=== PATIENT | female | born 1960 | race Hispanic/Latino ===

== ENCOUNTER 2016-11-15 16:20 | Emergency (ER) | payer OTHER ==
[2016-11-15 16:20] VITALS: BMI 26.4
[2016-11-15 16:39] VITALS: BP 98/60; PULSE 84; RESP 18; TEMP 97.7; O2SAT 95
--- NOTE | 2016-11-15 17:49 | ED PDOC ---
HPI: Altered Mental Status Time Seen by Provider: 11/15/16 17:11 Chief Complaint (Nursing): Altered Mental Status Chief Complaint (Provider): Altered Mental Status History Per: Patient, Family (patient's daughter) Onset/Duration Of Symptoms: Days (x6) Current Symptoms Are (Timing): Still Present Associated Symptoms: Confused, Trouble Concentrating Additional Complaint(s): 17:11 Jemma Garrett is a 56 year old female with a history of bipolar disorder, depression, anxiety, epilepsy, and ADHD that is accompanied by her daughter and presents to the ED with a chief complaint of being unable to focus. Patient's daughter states that for the past 6 days, her mother has been acting "loopy;" she goes on to explain that when her mother is talking to others, she understands what they're saying, but when she begins responding, she loses track of her speech mid-sentence. Patient's daughter also reports that the patient would begin to "speak gibberish" upon waking up. Patient reports being under a lot of stress due to family problems, feeling more depressed than usual , and being unable to concentrate. She also states she switched taking Latuda right before bed to taking it in the middle of the day about one week ago. 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 3 300 mg-30 mg] FLUoxetine [Fluoxetine HCl] 20 mg PO TID #21 cap 09/21/15 FLUoxetine [Fluoxetine HCl] 60 mg PO DAILY #27 cap 12/04/15 Sulfamethoxazole/Trimethoprim 1 tab PO BID #20 tab 06/10/16 [Bactrim DS 800 mg-160 mg] Albuterol HFA [Ventolin HFA 90 2 puff IH Q4H #1 puff 10/15/16 mcg/actuation (8 g)] Azithromycin [Zithromax] 250 mg PO DAILY #6 tab 10/15/16 - Allergies Allergies/Adverse Reactions: Allergies Allergy/AdvReac Type Severity Reaction Status Date / Time No Known Allergies Allergy Verified 11/15/16 16:37 Review of Systems Eyes: Negative for: Other (no blurred vision) Neurological: Positive for: Change in Speech. Negative for: Weakness, Numbness , Headache Psych: Positive for: Depression. Negative for: Suicidal ideation Physical Exam - Reviewed Nursing Documentation Reviewed: Yes Vital Signs Reviewed: Yes - Physical Exam Appears: Positive for: Non-toxic, No Acute Distress (patient is cooperative) Head Exam: Positive for: ATRAUMATIC, NORMOCEPHALIC Skin: Positive for: Normal Color, Warm, Dry Eye Exam: Positive for: Normal appearance, EOMI, PERRL ENT: Positive for: Pharynx Is (clear), Other (dry mucous membranes) Cardiovascular/Chest: Positive for: Regular Rate, Rhythm. Negative for: Murmur Respiratory: Positive for: Normal Breath Sounds. Negative for: Respiratory Distress Neurologic/Psych: Positive for: Alert, Oriented (x3), Mood/Affect (mild anxious mood, no depressed mood), Other (fluid speech, does lose train of thought occasionally. Normal thought process, no HI/SI. ). Negative for: Motor/Sensory Deficits - Laboratory Results Result Diagrams: 11/15/16 17:00 11/15/16 17:00 - ECG O2 Sat by Pulse Oximetry: 95 (RA) Pulse Ox Interpretation: Normal Medical Decision Making Medical Decision Makin:28 Initial Impression: AMS Initial Plan: * CMP * [facility] * Urine dip * Urine drug screen * Alcohol Serum * Magnesium * Phosphorous * TSH * Glucose, Blood, POC * Crisis Eval * Reevaluation No clinically significant lab abnormalities. Evaluated by Pedro RODRIGUEZ Pt stable for discharge with f/u PMD and Estela. Stressed importance of taking medications PRESCRIBED. Scribe Attestation: Documented by Stephany Gordon, acting as a scribe for Cherri Banda MD Provider Scribe Attestation: All medical record entries made by the Scribe were at my direction and personally dictated by me. I have reviewed the chart and agree that the record accurately reflects my personal performance of the history, physical exam, medical decision making, and the department course for this patient. I have also personally directed, reviewed, and agree with the discharge instructions and disposition. Disposition - Clinical Impression Clinical Impression: Adverse drug effect Counseled Patient/Family Regarding: Studies Performed, Diagnosis, Need For Followup - Disposition Referrals: [facility] [Outside] - 11/18/16 (ALSO FOLLOW UP WITH YOUR PSYCHIATRIST EARLY NEXT WEEK) Disposition: Routine/Home Disposition Time: 18:00 Condition: STABLE Additional Instructions: TAKE YOUR MEDICATIONS PRESCRIBED. DO NOT CHANGE THE DOSE OR THE TIMING OF YOUR MEDICATIONS. FOLLOW UP WITH BOTH THE CLINIC AND YOUR PSYCHIATRIST. Instructions: Bipolar Disorder (ED), Dehydration (ED)
[2016-11-15 18:01] LABS: BASO # 0.1 K/uL (0.0-0.2); BASO % 1.3 % (0.0-2.0); EOS # 0.4 K/uL (0.0-0.7); EOS % 4.8 % (0.0-4.0); HEMATOCRIT 41.2 % (34.0-47.0); LYMPH % 39.8 % (20.0-40.0); MEAN CELL VOLUME 90.3 fl (81.0-99.0); MEAN CORPUSCULAR HEMOGLOBIN 30.2 pg (27.0-31.0); MEAN CORPUSCULAR HGB CONC 33.5 g/dL (33.0-37.0); MEAN PLATELET VOLUME 8.5 fl (7.2-11.7); MONO # 0.4 K/uL (0.0-0.8); MONO % 5.4 % (0.0-10.0); NEUT # 3.7 K/uL (1.8-7.0); NEUT % 48.7 % (50.0-75.0); NRBC % 0.2 % (0.0-0.0); RED CELL DISTRIBUTION WIDTH 12.9 % (11.5-14.5); WHITE BLOOD COUNT 7.5 K/uL (4.8-10.8)
[2016-11-15 18:26] LABS: ALB/GLOB RATIO 1.3 (1.0-2.1); ALCOHOL SERUM < 10 mg/dl (0-10); ALKALINE PHOSPHATASE 100 U/L (38-126); ALT/SGPT 26 U/L (9-52); AST/SGOT 22 U/L (14-36); BILIRUBIN,TOTAL 0.5 mg/dl (0.2-1.3); BLOOD UREA NITROGEN 16 mg/dl (7-17); CALCIUM 9.3 mg/dL (8.4-10.2); CARBON DIOXIDE 25 mmol/L (22-30); CHLORIDE 101 mmol/L (98-107); GFR AFRICAN-AMERICAN 56; GLUCOSE,RANDOM 80 mg/dL (65-105); MAGNESIUM 2.2 MG/DL (1.6-2.3); PHOSPHOROUS 3.8 mg/dl (2.5-4.5); POTASSIUM 4.1 MMOL/L (3.6-5.0); SODIUM 142 mmol/l (132-148); TOTAL PROTEIN 7.3 G/DL (6.3-8.2)
== END 2016-11-15 19:13 | disposition home or self-care (01) ==
LOC: H.ER 16:20
DX: R41.82 Altered mental status, unspecified (principal); T88.7XXA Unspecified adverse effect of drug or medicament, initial encounter; F31.9 Bipolar disorder, unspecified

== ENCOUNTER 2017-09-19 10:12 | Emergency (ER) | payer MEDICAID ==
[2017-09-19 10:27] VITALS: PULSE 91; RESP 16; TEMP 97.5; O2SAT 99; BMI 24.1
[2017-09-19] MEDS ORDERED: Oxycodone/Acetaminophen 5/325 mg Tab PO STA (10:54)
[2017-09-19] MEDS ORDERED: Oxycodone/Acetaminophen 5/325 mg Tab ONE (11:02)
--- NOTE | 2017-09-19 11:20 | ED PDOC ---
HPI: Dental Pain/Injury Time Seen by Provider: 09/19/17 10:33 Chief Complaint (Nursing): Dental Pain Chief Complaint (Provider): Dental Pain History Per: Patient Additional Complaint(s): 57 yo female, PMH of Anxiety, Depression and Bipolar Dis, presents to ED c/o pain and swelling lt lower molar since yesterday. Pt took 400 mg Motrin last night with little relief. Pt contacted her dentist and office reports he has the flu and all visits are cancelled until further notice. Past Medical History Reviewed: Nursing Documentation, Vital Signs Vital Signs: Last Vital Signs Temp 97.5 F L 09/19/17 10:26 Pulse 91 H 09/19/17 10:26 Resp 16 09/19/17 10:26 BP 132/91 H 09/19/17 10:26 Pulse Ox 99 09/19/17 10:26 - Medical History PMH: Anxiety, Asthma, Bipolar Disorder, Depression Denies: Diabetes, Hepatitis, HIV, HTN, Chronic Kidney Disease, Seizures, Sexually Transmitted Disease - Surgical History Surgical History: No Surg Hx - Family History Family History: States: Unknown Family Hx - Living Arrangements Living Arrangements: With Family - Social History Current smoker - smoking cessation education provided: No Alcohol: None Drugs: Denies - Immunization History Hx Tetanus Toxoid Vaccination: Yes (2013) Hx Influenza Vaccination: Yes (2014) - Home Medications Home Medications: Ambulatory Orders Medication Instructions Recorded Carbamide Peroxide [Debrox Ear 5 drop AD BID #1 bottle 02/21/15 Drops] Ciprofloxacin/Dexamethasone 3 drop OD BID #0 bottle 02/21/15 [Ciprodex Otic] Fluoxetine HCl [Prozac] 60 mg PO DAILY 02/21/15 Naproxen [Naprosyn Tab] 500 mg PO BID PRN #20 tab 02/21/15 traZODone [Desyrel] 50 mg PO HS 02/21/15 Acetaminophen with Codeine 1 tab PO Q8H #10 tab 06/14/15 [Tylenol with Codeine No. 3 300 mg-30 mg] FLUoxetine [Fluoxetine HCl] 20 mg PO TID #21 cap 09/21/15 FLUoxetine [Fluoxetine HCl] 60 mg PO DAILY #27 cap 12/04/15 Sulfamethoxazole/Trimethoprim 1 tab PO BID #20 tab 06/10/16 [Bactrim DS 800 mg-160 mg] Albuterol HFA [Ventolin HFA 90 2 puff IH Q4H #1 puff 10/15/16 mcg/actuation (8 g)] Azithromycin [Zithromax] 250 mg PO DAILY #6 tab 10/15/16 - Allergies Allergies/Adverse Reactions: Allergies Allergy/AdvReac Type Severity Reaction Status Date / Time No Known Allergies Allergy Verified 09/19/17 10:35 Review of Systems ROS Statement: Except As Marked, All Systems Reviewed And Found Negative ENT: Positive for: Other (dental pain) Physical Exam - Reviewed Nursing Documentation Reviewed: Yes Vital Signs Reviewed: Yes - Physical Exam Appears: Positive for: Well, Non-toxic, No Acute Distress Head Exam: Positive for: ATRAUMATIC, NORMAL INSPECTION, NORMOCEPHALIC Skin: Positive for: Normal Color, Warm, DRY Eye Exam: Positive for: EOMI, Normal appearance, PERRL ENT: Positive for: Normal ENT Inspection, Other ((+) left lower 2-3rd molars, dental carries in place. no surrounding kristy aor erythema to gumline. ) Neck: Positive for: Normal, Painless ROM Cardiovascular/Chest: Positive for: Regular Rate, Rhythm Respiratory: Positive for: CNT, Normal Breath Sounds Gastrointestinal/Abdominal: Positive for: Normal Exam, Bowel Sounds, Soft Back: Positive for: Normal Inspection Extremity: Positive for: Normal ROM Neurologic/Psych: Positive for: Alert, Oriented - ECG O2 Sat by Pulse Oximetry: 99 Medical Decision Making Medical Decision Making: Medicated with Percocet PO Advised follow up with Dentist JOHANNA Disposition - Clinical Impression Clinical Impression: Toothache - Patient ED Disposition Is Patient to be Admitted: No - Disposition Disposition: Routine/Home Disposition Time: 11:24 Condition: STABLE - POA Present On Arrival: None
[2017-09-19 11:38] VITALS: BP 127/87
== END 2017-09-19 11:37 | disposition home or self-care (01) ==
LOC: H.ER 10:12
DX: K08.89 Other specified disorders of teeth and supporting structures (principal); F31.9 Bipolar disorder, unspecified; F41.9 Anxiety disorder, unspecified; J45.909 Unspecified asthma, uncomplicated

== ENCOUNTER 2017-09-26 04:41 | Emergency (ER) | payer MEDICAID, OTHER ==
[2017-09-26 04:42] VITALS: BMI 24.1
[2017-09-26] MEDS ORDERED: Albuterol-Ipratrop 3 mg / 0.5 (3 ml) UD INH STA (04:54)
--- NOTE | 2017-09-26 04:56 | ED PDOC ---
HPI: SOB/CHF/COPD Time Seen by Provider: 09/26/17 04:54 Chief Complaint (Nursing): Shortness Of Breath Chief Complaint (Provider): shortness of breath History Per: Patient (57 y/o female h/o Asthma here with complaint of SOB noted after exposure to fumes in bathroom. States she is out of albuterol and is here for treatment. Denies any cough/fevers/uri.) Past Medical History Reviewed: Historical Data, Nursing Documentation, Vital Signs Vital Signs: Last Vital Signs Temp 98.2 F 09/26/17 04:49 Pulse 104 H 09/26/17 04:49 Resp 18 09/26/17 04:49 BP 169/108 H 09/26/17 04:49 Pulse Ox 96 09/26/17 04:56 - Medical History PMH: Anxiety, Asthma, Bipolar Disorder, Depression Denies: Diabetes, Hepatitis, HIV, HTN, Chronic Kidney Disease, Seizures, Sexually Transmitted Disease - Family History Family History: States: Unknown Family Hx - Immunization History Hx Tetanus Toxoid Vaccination: Yes (2013) Hx Influenza Vaccination: Yes (2014) - Home Medications Home Medications: Ambulatory Orders Medication Instructions Recorded Carbamide Peroxide [Debrox Ear 5 drop AD BID #1 bottle 02/21/15 Drops] Ciprofloxacin/Dexamethasone 3 drop OD BID #0 bottle 02/21/15 [Ciprodex Otic] Fluoxetine HCl [Prozac] 60 mg PO DAILY 02/21/15 Naproxen [Naprosyn Tab] 500 mg PO BID PRN #20 tab 02/21/15 traZODone [Desyrel] 50 mg PO HS 02/21/15 Acetaminophen with Codeine 1 tab PO Q8H #10 tab 06/14/15 [Tylenol with Codeine No. 3 300 mg-30 mg] FLUoxetine [Fluoxetine HCl] 20 mg PO TID #21 cap 09/21/15 FLUoxetine [Fluoxetine HCl] 60 mg PO DAILY #27 cap 12/04/15 Sulfamethoxazole/Trimethoprim 1 tab PO BID #20 tab 06/10/16 [Bactrim DS 800 mg-160 mg] Albuterol HFA [Ventolin HFA 90 2 puff IH Q4H #1 puff 10/15/16 mcg/actuation (8 g)] Azithromycin [Zithromax] 250 mg PO DAILY #6 tab 02/21/17 Ibuprofen [Motrin] 600 mg PO Q6 #20 tab 09/19/17 Penicillin VK [Penicillin VK Tab] 500 mg PO BID 7 Days tab 09/19/17 oxyCODONE/Acetaminophen [Percocet 1 ea PO Q6 PRN #10 tab 09/19/17 5/325 mg Tab] Albuterol HFA [Ventolin HFA 90 2 puff IH [id number] PRN #1 inhaler 09/26/17 mcg/actuation (8 g)] - Allergies Allergies/Adverse Reactions: Allergies Allergy/AdvReac Type Severity Reaction Status Date / Time No Known Allergies Allergy Verified 09/19/17 10:35 Review of Systems ROS Statement: Except As Marked, All Systems Reviewed And Found Negative Physical Exam - Reviewed Nursing Documentation Reviewed: Yes Vital Signs Reviewed: Yes - Physical Exam Appears: Positive for: Well, Non-toxic, No Acute Distress Head Exam: Positive for: ATRAUMATIC, NORMAL INSPECTION, NORMOCEPHALIC Skin: Positive for: Normal Color, Warm, DRY Eye Exam: Positive for: EOMI, Normal appearance, PERRL ENT: Positive for: Normal ENT Inspection Neck: Positive for: Normal, Painless ROM Cardiovascular/Chest: Positive for: Regular Rate, Rhythm Respiratory: Positive for: Normal Breath Sounds, Decreased Breath Sounds Gastrointestinal/Abdominal: Positive for: Normal Exam, Bowel Sounds, Soft Back: Positive for: Normal Inspection Extremity: Positive for: Normal ROM Neurologic/Psych: Positive for: Alert, Oriented - ECG O2 Sat by Pulse Oximetry: 96 - Progress ED Course And Treament: duoneb x 1 dose Patient improved. Lungs improved clear auscultation. Disposition - Clinical Impression Clinical Impression: Asthma - Patient ED Disposition Is Patient to be Admitted: No - Disposition Referrals: Sarai More MD [Primary Care Provider] - Disposition: Routine/Home Disposition Time: 05:25 Condition: FAIR Prescriptions: Albuterol HFA [Ventolin HFA 90 mcg/actuation (8 g)] 2 puff IH [id number] PRN #1 inhaler PRN Reason: Shortness Of Breath Instructions: Asthma (DC) Forms: [employer] (Mauritanian)
[2017-09-26 05:13] VITALS: TEMP 98.2; O2SAT 96
[2017-09-26 05:35] VITALS: BP 125/73; PULSE 92; RESP 16
== END 2017-09-26 05:35 | disposition home or self-care (01) ==
LOC: H.ER 04:41
DX: J45.909 Unspecified asthma, uncomplicated (principal); F31.9 Bipolar disorder, unspecified; F41.9 Anxiety disorder, unspecified

== ENCOUNTER 2017-10-08 07:28 | Emergency (ER) | payer OTHER ==
[2017-10-08 07:28] VITALS: BMI 24.1
[2017-10-08 07:45] VITALS: RESP 18
[2017-10-08] MEDS ORDERED: Albuterol-Ipratrop 3 mg / 0.5 (3 ml) UD INH STA ×3 (07:46→08:02)
[2017-10-08] MEDS ORDERED: methylPREDNISolone 125 MG in Sodium Chloride 0.9% 50 ML IM STA (07:46)
--- NOTE | 2017-10-08 07:48 | ED PDOC ---
HPI: Asthma Time Seen by Provider: 10/08/17 07:39 Chief Complaint (Nursing): Shortness Of Breath Chief Complaint (Provider): Shortness of Breath History Per: Patient History/Exam Limitations: no limitations Current Symptoms Are (Timing): Still Present Additional Complaint(s): Jemma Muñiz is a 57 y/o female with a history of asthma who presents to the ED complaining of shortness of breath due to an asthma attack. Patient states she' s been using her pump 3-4 times a day, but ran out last night and hasn't been able to get improvement from breathing. She also complains of chest pain and non -productive cough, but denies fever, nausea, or vomiting. PMD: None Past Medical History Reviewed: Historical Data, Nursing Documentation, Vital Signs Vital Signs: Last Vital Signs Temp 97.8 F 10/08/17 07:40 Pulse 94 H 10/08/17 07:40 Resp 18 10/08/17 07:40 BP 142/103 H 10/08/17 07:40 Pulse Ox 95 10/08/17 07:40 - Medical History PMH: Anxiety, Asthma, Bipolar Disorder, Depression Denies: Diabetes, Hepatitis, HIV, HTN, Hypercholesterolemia, Chronic Kidney Disease, Seizures, Sexually Transmitted Disease - Family History Family History: States: Unknown Family Hx - Social History Current smoker - smoking cessation education provided: No (used to live with someone who smokes) - Immunization History Hx Tetanus Toxoid Vaccination: Yes (2013) Hx Influenza Vaccination: No - Home Medications Home Medications: Ambulatory Orders Medication Instructions Recorded Carbamide Peroxide [Debrox Ear 5 drop AD BID #1 bottle 02/21/15 Drops] Ciprofloxacin/Dexamethasone 3 drop OD BID #0 bottle 02/21/15 [Ciprodex Otic] Fluoxetine HCl [Prozac] 60 mg PO DAILY 02/21/15 Naproxen [Naprosyn Tab] 500 mg PO BID PRN #20 tab 02/21/15 traZODone [Desyrel] 50 mg PO HS 02/21/15 Acetaminophen with Codeine 1 tab PO Q8H #10 tab 06/14/15 [Tylenol with Codeine No. 3 300 mg-30 mg] FLUoxetine [Fluoxetine HCl] 20 mg PO TID #21 cap 09/21/15 FLUoxetine [Fluoxetine HCl] 60 mg PO DAILY #27 cap 12/04/15 Sulfamethoxazole/Trimethoprim 1 tab PO BID #20 tab 06/10/16 [Bactrim DS 800 mg-160 mg] Albuterol HFA [Ventolin HFA 90 2 puff IH Q4H #1 puff 10/15/16 mcg/actuation (8 g)] Azithromycin [Zithromax] 250 mg PO DAILY #6 tab 10/15/16 Ibuprofen [Motrin] 600 mg PO Q6 #20 tab 09/19/17 Penicillin VK [Penicillin VK Tab] 500 mg PO BID 7 Days tab 09/19/17 oxyCODONE/Acetaminophen [Percocet 1 ea PO Q6 PRN #10 tab 09/19/17 5/325 mg Tab] Albuterol HFA [Ventolin HFA 90 2 puff IH [id number] PRN #1 inhaler 09/26/17 mcg/actuation (8 g)] Albuterol Sulfate [Proair Hfa] 2 puff IH Q4H PRN #1 unit 10/08/17 predniSONE [predniSONE Tab] 40 mg PO DAILY #10 tab 10/08/17 - Allergies Allergies/Adverse Reactions: Allergies Allergy/AdvReac Type Severity Reaction Status Date / Time No Known Allergies Allergy Verified 10/08/17 07:40 Review of Systems ROS Statement: Except As Marked, All Systems Reviewed And Found Negative Constitutional: Negative for: Fever ENT: Positive for: Throat Pain (tightness) Cardiovascular: Positive for: Chest Pain Respiratory: Positive for: Cough, Shortness of Breath Gastrointestinal: Negative for: Nausea, Vomiting Physical Exam - Reviewed Nursing Documentation Reviewed: Yes Vital Signs Reviewed: Yes - Physical Exam Appears: Positive for: Well, Non-toxic, No Acute Distress Head Exam: Positive for: ATRAUMATIC, NORMAL INSPECTION, NORMOCEPHALIC Skin: Positive for: Normal Color, Warm, Dry Neck: Positive for: Normal, Painless ROM, Supple Cardiovascular/Chest: Positive for: Regular Rate, Rhythm. Negative for: Gallop , Murmur Respiratory: Positive for: Wheezing (b/l), Respiratory Distress (mild). Negative for: Rales Gastrointestinal/Abdominal: Positive for: Normal Exam, Bowel Sounds, Soft. Negative for: Tenderness Neurologic/Psych: Positive for: Alert (speaking full sentences), Oriented - ECG ECG: Positive for: Interpreted By Me, Viewed By Me ECG Rhythm: Positive for: Sinus Rhythm Interpretation Of ECG: normal axis, no acute changes Rate: 93 (bpm) O2 Sat by Pulse Oximetry: 95 (RA) Pulse Ox Interpretation: Normal Medical Decision Making Medical Decision Making: Time: 7:46 Initial Impression: Acute exacerbation of asthma Initial Plan: --Duoneb x 2 --Solu-Medrol Scribe Attestation: Documented by Carlos Bolden, acting as a scribe for Dr. Marisol Dyer MD. Provider Scribe Attestation: All medical record entries made by the Scribe were at my direction and personally dictated by me. I have reviewed the chart and agree that the record accurately reflects my personal performance of the history, physical exam, medical decision making, and the department course for this patient. I have also personally directed, reviewed, and agree with the discharge instructions and disposition. Disposition - Clinical Impression Clinical Impression: Asthma attack - Patient ED Disposition Is Patient to be Admitted: No Doctor Will See Patient In The: Office Counseled Patient/Family Regarding: Diagnosis, Need For Followup, Rx Given - Disposition Referrals: [facility] [Outside] Disposition: Routine/Home Disposition Time: 08:51 Condition: IMPROVED Prescriptions: Albuterol Sulfate [Proair Hfa] 2 puff IH Q4H PRN #1 unit PRN Reason: Wheezing predniSONE [predniSONE Tab] 40 mg PO DAILY #10 tab Instructions: Asthma (ED) Forms: [employer] ([place]) - POA Present On Arrival: None
[2017-10-08] MEDS ORDERED: Albuterol-Ipratrop 3 mg / 0.5 (3 ml) UD ONE (08:11)
[2017-10-08 09:17] VITALS: BP 134/76; PULSE 87; TEMP 98.1; O2SAT 98
== END 2017-10-08 09:18 | disposition home or self-care (01) ==
LOC: H.ER 07:28
DX: J45.901 Unspecified asthma with (acute) exacerbation (principal); F31.9 Bipolar disorder, unspecified; F41.9 Anxiety disorder, unspecified
CPT/HCPCS: 94150; 94640; 96374; 99285; J2930

== ENCOUNTER 2017-10-19 10:15 | Emergency (ER) | payer OTHER ==
[2017-10-19 10:15] VITALS: BMI 24.1
[2017-10-19 10:38] VITALS: TEMP 98.3
[2017-10-19] MEDS ORDERED: Albuterol-Ipratrop 3 mg / 0.5 (3 ml) UD INH STA ×2 (10:47→13:20)
[2017-10-19] MEDS ORDERED: Azithromycin 500 MG in Sodium Chloride 0.9% 250 ML IV STA (10:48)
--- NOTE | 2017-10-19 10:51 | ED PDOC ---
HPI: SOB/CHF/COPD Time Seen by Provider: 10/19/17 10:30 Chief Complaint (Nursing): Shortness Of Breath Chief Complaint (Provider): SOB History Per: Patient History/Exam Limitations: no limitations Onset/Duration Of Symptoms: Days (3) Current Symptoms Are (Timing): Still Present Additional Complaint(s): Pt reports SOB, nonproductive cough and wheezing X 3 days, ran out of Prednisone 4 days ago. Denies CP, fever, vomiting, palpitations. Against Medical Advice - AMA Patient Left Against Medical Advice: The patient declines admission to the hospital and wishes to leave the Emergency Department. This action is against my medical advice. This decision was made with informed refusal. The patient was told that admission to the hospital is necessary. Explanation of the reasons why were discussed. The risks of leaving were explained to the patient and include, but are not limited to, worsening of known or currently unknown conditions, permanent disability and from undiagnosed or untreated conditions. The patient has the capacity to make this informed decision and understands my explanation of the current medical problem and risks of leaving. The patient voluntarily accepts these risks and signed an AMA form documenting our conversation. The patient was given the opportunity to ask questions and reconsider. The patient was encouraged to return to the Emergency Department at any time for further care. Past Medical History Reviewed: Nursing Documentation, Vital Signs Vital Signs: Last Vital Signs Temp 98.3 F 10/19/17 10:34 Pulse 78 10/19/17 14:19 Resp 16 10/19/17 14:19 BP 104/68 10/19/17 14:19 Pulse Ox 92 L 10/19/17 14:19 - Medical History PMH: Anxiety, Asthma, Bipolar Disorder, Depression Denies: Diabetes, Hepatitis, HIV, HTN, Hypercholesterolemia, Chronic Kidney Disease, Seizures, Sexually Transmitted Disease - Family History Family History: States: Unknown Family Hx - Social History Current smoker - smoking cessation education provided: No - Immunization History Hx Tetanus Toxoid Vaccination: Yes (2013) Hx Influenza Vaccination: No - Home Medications Home Medications: Ambulatory Orders Medication Instructions Recorded Carbamide Peroxide [Debrox Ear 5 drop AD BID #1 bottle 02/21/15 Drops] Ciprofloxacin/Dexamethasone 3 drop OD BID #0 bottle 02/21/15 [Ciprodex Otic] Fluoxetine HCl [Prozac] 60 mg PO DAILY 02/21/15 Naproxen [Naprosyn Tab] 500 mg PO BID PRN #20 tab 02/21/15 traZODone [Desyrel] 50 mg PO HS 02/21/15 Acetaminophen with Codeine 1 tab PO Q8H #10 tab 06/14/15 [Tylenol with Codeine No. 3 300 mg-30 mg] FLUoxetine [Fluoxetine HCl] 20 mg PO TID #21 cap 09/21/15 FLUoxetine [Fluoxetine HCl] 60 mg PO DAILY #27 cap 12/04/15 Sulfamethoxazole/Trimethoprim 1 tab PO BID #20 tab 06/10/16 [Bactrim DS 800 mg-160 mg] Albuterol HFA [Ventolin HFA 90 2 puff IH Q4H #1 puff 10/15/16 mcg/actuation (8 g)] Azithromycin [Zithromax] 250 mg PO DAILY #6 tab 10/15/16 Ibuprofen [Motrin] 600 mg PO Q6 #20 tab 09/19/17 Penicillin VK [Penicillin VK Tab] 500 mg PO BID 7 Days tab 09/19/17 oxyCODONE/Acetaminophen [Percocet 1 ea PO Q6 PRN #10 tab 09/19/17 5/325 mg Tab] Albuterol HFA [Ventolin HFA 90 2 puff IH [id number] PRN #1 inhaler 09/26/17 mcg/actuation (8 g)] Albuterol Sulfate [Proair Hfa] 2 puff IH Q4H PRN #1 unit 10/08/17 predniSONE [predniSONE Tab] 40 mg PO DAILY #10 tab 10/08/17 Albuterol HFA [Ventolin HFA 90 2 puff IH [id number] PRN #1 bottle 10/19/17 mcg/actuation (8 g)] Prednisone 50 mg PO DAILY #4 tab 10/19/17 - Allergies Allergies/Adverse Reactions: Allergies Allergy/AdvReac Type Severity Reaction Status Date / Time No Known Allergies Allergy Verified 10/08/17 07:40 Review of Systems Constitutional: Negative for: Fever, Chills Cardiovascular: Negative for: Chest Pain, Palpitations Respiratory: Positive for: Cough, Shortness of Breath, Wheezing. Negative for: Sputum Gastrointestinal: Negative for: Nausea, Vomiting, Abdominal Pain, Diarrhea Skin: Negative for: Rash, Lesions Neurological: Negative for: Headache, Dizziness Physical Exam - Reviewed Nursing Documentation Reviewed: Yes Vital Signs Reviewed: Yes - Physical Exam Appears: Positive for: Well, No Acute Distress Skin: Positive for: Normal Color, Warm, Dry Eye Exam: Positive for: Normal appearance, EOMI, PERRL Cardiovascular/Chest: Positive for: Regular Rate, Rhythm Respiratory: Positive for: Wheezing (Bilateral). Negative for: Accessory Muscle Use, Rales, Rhonchi, Respiratory Distress Gastrointestinal/Abdominal: Positive for: Normal Exam Extremity: Positive for: Normal ROM Neurologic/Psych: Positive for: Alert, Oriented - Laboratory Results Result Diagrams: 10/19/17 11:15 10/19/17 12:14 - ECG O2 Sat by Pulse Oximetry: 89 Pulse Ox Interpretation: Abnormal Medical Decision Making Medical Decision Makin yo female with SOB and cough. - labs - EKG - CXR - Albuterol/atrovent nebs - Solumedrol 14:01 Patient left AMA. Disposition - Clinical Impression Clinical Impression: Asthma exacerbation - Disposition Disposition: Against Medical Advice Disposition Time: 14:00 Condition: UNKNOWN Prescriptions: Albuterol HFA [Ventolin HFA 90 mcg/actuation (8 g)] 2 puff IH [id number] PRN #1 bottle PRN Reason: Shortness Of Breath Prednisone 50 mg PO DAILY #4 tab Forms: [employer] (N[place]ian)
[2017-10-19] MEDS ORDERED: Albuterol-Ipratrop 3 mg / 0.5 (3 ml) UD ONE (10:56)
--- NOTE | 2017-10-19 11:22 | RAD ---
HISTORY: SOB COMPARISON: Chest radiographs 10/15/2016 TECHNIQUE: Chest PA and lateral FINDINGS: LUNGS: No active pulmonary disease. PLEURA: No significant pleural effusion identified. No pneumothorax apparent. Limited biapical pleural thickening again evident. CARDIOVASCULAR: Normal. OSSEOUS STRUCTURES: No significant abnormalities. VISUALIZED UPPER ABDOMEN: Normal. OTHER FINDINGS: None. IMPRESSION: No interval acute cardiopulmonary disease appreciated.
[2017-10-19 11:38] LABS: BASO # 0.1 K/uL (0.0-0.2); BASO % 0.9 % (0.0-2.0); EOS # 0.7 K/uL (0.0-0.7); EOS % 6.1 % (0.0-4.0); HEMOGLOBIN 13.9 g/dL (12.0-16.0); LYMPH # 3.1 K/uL (1.0-4.3); LYMPH % 28.2 % (20.0-40.0); MEAN CELL VOLUME 89.3 fl (81.0-99.0); MEAN CORPUSCULAR HEMOGLOBIN 30.6 pg (27.0-31.0); MEAN CORPUSCULAR HGB CONC 34.3 g/dL (33.0-37.0); MEAN PLATELET VOLUME 7.7 fl (7.2-11.7); MONO # 0.7 K/uL (0.0-0.8); MONO % 6.1 % (0.0-10.0); NEUT # 6.4 K/uL (1.8-7.0); NEUT % 58.7 % (50.0-75.0); NRBC % 0.1 % (0.0-0.0); RBC 4.53 Mil/uL (3.80-5.20); RED CELL DISTRIBUTION WIDTH 13.5 % (11.5-14.5); WHITE BLOOD COUNT 10.9 K/uL (4.8-10.8)
[2017-10-19 12:38] LABS: ALB/GLOB RATIO 1.1 (1.0-2.1); ALBUMIN 3.6 g/dL (3.5-5.0); ALT/SGPT 23 U/L (9-52); AST/SGOT 18 U/L (14-36); BLOOD UREA NITROGEN 12 mg/dl (7-17); CALCIUM 8.9 mg/dL (8.4-10.2); GFR AFRICAN-AMERICAN > 60; GFR NON-AFRICAN AMERICAN > 60
[2017-10-19] MEDS ORDERED: Potassium Chloride 20 mEq ER Tab PO STA (12:41)
[2017-10-19] MEDS ORDERED: Potassium Chloride 20 mEq ER Tab PO ONE (13:09)
[2017-10-19 13:11] VITALS: RESP 16
[2017-10-19 14:20] VITALS: BP 104/68; PULSE 78
[2017-10-20 09:04] VITALS: O2SAT 89
--- NOTE | 2017-10-20 21:23 | CARD ---
APPROVED REPORT EKG Measurement Heart [id number] <Conclusion> Sinus tachycardia Otherwise normal ECG
== END 2017-10-19 14:20 | disposition left against medical advice (07) ==
LOC: H.ER 10:15
DX: J45.901 Unspecified asthma with (acute) exacerbation (principal); F31.9 Bipolar disorder, unspecified; F41.9 Anxiety disorder, unspecified
CPT/HCPCS: 71046; 80053; 85025; 87040; 93005; 94640; 96365; 96375; 99284; J0456; J2930

== ENCOUNTER 2018-01-05 08:27 | Emergency (ER) | payer OTHER ==
[2018-01-05 08:28] VITALS: BMI 24.1
[2018-01-05 08:39] VITALS: TEMP 97
[2018-01-05] MEDS ORDERED: Albuterol-Ipratrop 3 mg / 0.5 (3 ml) UD INH STA (09:03)
--- NOTE | 2018-01-05 09:06 | ED PDOC ---
HPI: SOB/CHF/COPD Time Seen by Provider: 01/05/18 08:34 Chief Complaint (Nursing): Shortness Of Breath Chief Complaint (Provider): Shortness of breath History Per: Patient History/Exam Limitations: no limitations Current Symptoms Are (Timing): Still Present Initiating Event: Out Of Medications Current Respiratory Medications: See Home Med List Associated Symptoms: denies: Fever, Chills, Chest Pain Additional History Per: Patient Additional Complaint(s): 57yo female with history of asthma, presents to ER for evaluation of wheeze for the past couple days. Patient states she visited her PMD and was prescribed Proventol however her insurance company has not filled the prescription. She denies any fever, chills, chest pain, cough. She has no other medical complaints. PMD: Sarai More Past Medical History Reviewed: Historical Data, Nursing Documentation, Vital Signs Vital Signs: Last Vital Signs Temp 97 F L 01/05/18 08:35 Pulse 82 01/05/18 08:35 Resp 19 01/05/18 09:57 BP 145/100 H 01/05/18 08:35 Pulse Ox 93 L 01/05/18 11:06 - Medical History PMH: Anxiety, Asthma, Bipolar Disorder, Depression Denies: Diabetes, Hepatitis, HIV, HTN, Hypercholesterolemia, Chronic Kidney Disease, Seizures, Sexually Transmitted Disease - Surgical History Surgical History: No Surg Hx - Family History Family History: States: No Known Family Hx, Unknown Family Hx - Immunization History Hx Tetanus Toxoid Vaccination: Yes (2013) Hx Influenza Vaccination: No - Home Medications Home Medications: Ambulatory Orders Medication Instructions Recorded Carbamide Peroxide [Debrox Ear 5 drop AD BID #1 bottle 02/21/15 Drops] Ciprofloxacin/Dexamethasone 3 drop OD BID #0 bottle 02/21/15 [Ciprodex Otic] Fluoxetine HCl [Prozac] 60 mg PO DAILY 02/21/15 Naproxen [Naprosyn Tab] 500 mg PO BID PRN #20 tab 02/21/15 traZODone [Desyrel] 50 mg PO HS 02/21/15 Acetaminophen with Codeine 1 tab PO Q8H #10 tab 06/14/15 [Tylenol with Codeine No. 3 300 mg-30 mg] FLUoxetine [Fluoxetine HCl] 20 mg PO TID #21 cap 09/21/15 FLUoxetine [Fluoxetine HCl] 60 mg PO DAILY #27 cap 12/04/15 Sulfamethoxazole/Trimethoprim 1 tab PO BID #20 tab 06/10/16 [Bactrim DS 800 mg-160 mg] Albuterol HFA [Ventolin HFA 90 2 puff IH Q4H #1 puff 10/15/16 mcg/actuation (8 g)] Azithromycin [Zithromax] 250 mg PO DAILY #6 tab 10/15/16 Ibuprofen [Motrin] 600 mg PO Q6 #20 tab 09/19/17 Penicillin VK [Penicillin VK Tab] 500 mg PO BID 7 Days tab 09/19/17 oxyCODONE/Acetaminophen [Percocet 1 ea PO Q6 PRN #10 tab 09/19/17 5/325 mg Tab] Albuterol HFA [Ventolin HFA 90 2 puff IH [id number] PRN #1 inhaler 09/26/17 mcg/actuation (8 g)] Albuterol Sulfate [Proair Hfa] 2 puff IH Q4H PRN #1 unit 10/08/17 predniSONE [predniSONE Tab] 40 mg PO DAILY #10 tab 10/08/17 Albuterol HFA [Ventolin HFA 90 2 puff IH [id number] PRN #1 bottle 10/19/17 mcg/actuation (8 g)] Prednisone 50 mg PO DAILY #4 tab 10/19/17 - Allergies Allergies/Adverse Reactions: Allergies Allergy/AdvReac Type Severity Reaction Status Date / Time No Known Allergies Allergy Verified 01/05/18 08:35 Review of Systems ROS Statement: Except As Marked, All Systems Reviewed And Found Negative Constitutional: Negative for: Fever, Chills Cardiovascular: Negative for: Chest Pain Respiratory: Positive for: Shortness of Breath, Wheezing. Negative for: Cough Physical Exam - Reviewed Nursing Documentation Reviewed: Yes Vital Signs Reviewed: Yes - Physical Exam Appears: Positive for: Non-toxic, Uncomfortable Head Exam: Positive for: ATRAUMATIC, NORMAL INSPECTION, NORMOCEPHALIC Skin: Positive for: Normal Color Eye Exam: Positive for: Normal appearance Neck: Positive for: Supple Cardiovascular/Chest: Positive for: Regular Rate, Rhythm Respiratory: Positive for: Wheezing (bilateral wheezing), Other (able to speak full sentences) Gastrointestinal/Abdominal: Positive for: Normal Exam, Soft. Negative for: Tenderness Back: Positive for: Normal Inspection Extremity: Positive for: Normal ROM Neurologic/Psych: Positive for: Alert, Oriented - ECG O2 Sat by Pulse Oximetry: 93 (RA) Pulse Ox Interpretation: Abnormal - Progress Re-evaluation Time: 11:30 Condition: Improved Medical Decision Making Medical Decision Making: Impression: Shortness of breath, asthma exacerbation Plan: -- Duoneb 3ml INH -- Prednisone 50mg PO -- EKG -- CXR Time: 1022 CXR FINDINGS: LUNGS: No active pulmonary disease mild biapical pleural thickening. There appears to be some mild bibasilar chronic atelectasis and or scarring left greater than right. Additionally, a few tiny calcific like densities left lateral lung base headaches could represent cluster of tiny calcified granulomas PLEURA: No significant pleural effusion identified. No pneumothorax apparent. CARDIOVASCULAR: Normal. OSSEOUS STRUCTURES: No significant abnormalities. VISUALIZED UPPER ABDOMEN: Normal. OTHER FINDINGS: None. IMPRESSION: No mild biapical pleural thickening. Mild bibasilar chronic atelectasis and or scarring left greater than right. Questionable few tiny calcific densities seen in the left lateral upper lung field possibly representing cluster of tiny calcified granulomas. Scribe Attestation: Documented by, Mary Lou Jeronimo acting as a scribe for Daphne Leung MD. Provider Scribe Attestation: All medical record entries made by the Scribe were at my direction and personally dictated by me. I have reviewed the chart and agree that the record accurately reflects my personal performance of the history, physical exam, medical decision making, and the department course for this patient. I have also personally directed, reviewed, and agree with the discharge instructions and disposition. Disposition - Disposition Forms: [employer] (French)
[2018-01-05] MEDS ORDERED: Albuterol-Ipratrop 3 mg / 0.5 (3 ml) UD ONE ×2 (09:15→11:25)
--- NOTE | 2018-01-05 10:23 | RAD ---
HISTORY: SOB COMPARISON: Comparison chest 10/19/2017 TECHNIQUE: Chest PA and lateral FINDINGS: LUNGS: No active pulmonary disease mild biapical pleural thickening. There appears to be some mild bibasilar chronic atelectasis and or scarring left greater than right. Additionally, a few tiny calcific like densities left lateral lung base headaches could represent cluster of tiny calcified granulomas PLEURA: No significant pleural effusion identified. No pneumothorax apparent. CARDIOVASCULAR: Normal. OSSEOUS STRUCTURES: No significant abnormalities. VISUALIZED UPPER ABDOMEN: Normal. OTHER FINDINGS: None. IMPRESSION: No mild biapical pleural thickening. Mild bibasilar chronic atelectasis and or scarring left greater than right. Questionable few tiny calcific densities seen in the left lateral upper lung field possibly representing cluster of tiny calcified granulomas.
--- NOTE | 2018-01-05 11:21 | CARD ---
APPROVED REPORT EKG Measurement Heart [id number] <Conclusion> Normal sinus rhythm Normal ECG
[2018-01-05] MEDS ORDERED: Albuterol HFA 90 mcg/actuation (8 g) INH STA (11:23)
[2018-01-05] MEDS ORDERED: PRO AIR HFA 8.5GM INHALER(FOR OR USE ONLY) IH STA (11:29)
[2018-01-05 12:24] VITALS: BP 136/99; PULSE 73; RESP 18; O2SAT 100
== END 2018-01-05 12:24 | disposition home or self-care (01) ==
LOC: H.ER 08:27
DX: J45.901 Unspecified asthma with (acute) exacerbation (principal); R06.02 Shortness of breath; F31.9 Bipolar disorder, unspecified; F41.9 Anxiety disorder, unspecified

== ENCOUNTER 2018-12-19 15:23 | Emergency (ER) | payer OTHER ==
[2018-12-19 15:23] VITALS: BMI 24.1
[2018-12-19 15:32] VITALS: BP 140/89; RESP 18; TEMP 98.3; O2SAT 99
[2018-12-19] MEDS ORDERED: Lidocaine 5% Patch TD STA (15:42)
--- NOTE | 2018-12-19 15:50 | ED PDOC ---
Upper Extremity Pain/Injury Time Seen by Provider: 12/19/18 15:34 Chief Complaint (Nursing): Upper Extremity Problem/Injury Chief Complaint (Provider): Upper Extremity Problem/Injury History Per: Patient History/Exam Limitations: no limitations Onset/Duration Of Symptoms: Other (x3 weeks) Current Symptoms Are (Timing): Still Present Additional Complaint(s): Patient is a 58 y/o female with a PMHx of anxiety, asthma, bipolar disorder, and depression who presents to the ED for evaluation of constant, atraumatic right shoulder pain radiating down the patient's entire arm for the past three weeks. Patient claims she has been taking Advil with no relief. Patient denies fever, chills, trauma, weakness, chest pain, and SOB. PCP: None Provided Past Medical History Reviewed: Historical Data, Nursing Documentation, Vital Signs Vital Signs: Last Vital Signs Temp 98.3 F 12/19/18 15:30 Pulse 98 H 12/19/18 15:30 Resp 18 12/19/18 15:30 BP 140/89 12/19/18 15:30 Pulse Ox 99 12/19/18 15:30 - Medical History PMH: Anxiety, Asthma, Bipolar Disorder, Depression Denies: Diabetes, Hepatitis, HIV, HTN, Hypercholesterolemia, Chronic Kidney Disease, Seizures, Sexually Transmitted Disease - Surgical History Surgical History: No Surg Hx - Family History Family History: States: Unknown Family Hx - Immunization History Hx Tetanus Toxoid Vaccination: Yes (2013) Hx Influenza Vaccination: No - Home Medications Home Medications: Ambulatory Orders Medication Instructions Recorded Carbamide Peroxide [Debrox Ear 5 drop AD BID #1 bottle 02/21/15 Drops] Ciprofloxacin/Dexamethasone 3 drop OD BID #0 bottle 02/21/15 [Ciprodex Otic] Fluoxetine HCl [Prozac] 60 mg PO DAILY 02/21/15 Naproxen [Naprosyn Tab] 500 mg PO BID PRN #20 tab 02/21/15 traZODone [Desyrel] 50 mg PO HS 02/21/15 Acetaminophen with Codeine 1 tab PO Q8H #10 tab 06/14/15 [Tylenol with Codeine No. 3 300 mg-30 mg] FLUoxetine [Fluoxetine HCl] 20 mg PO TID #21 cap 09/21/15 FLUoxetine [Fluoxetine HCl] 60 mg PO DAILY #27 cap 12/04/15 Sulfamethoxazole/Trimethoprim 1 tab PO BID #20 tab 10/17/16 [Bactrim DS 800 mg-160 mg] Albuterol HFA [Ventolin HFA 90 2 puff IH Q4H #1 puff 10/15/16 mcg/actuation (8 g)] Azithromycin [Zithromax] 250 mg PO DAILY #6 tab 10/15/16 Ibuprofen [Motrin] 600 mg PO Q6 #20 tab 09/19/17 Penicillin VK [Penicillin VK Tab] 500 mg PO BID 7 Days tab 09/19/17 oxyCODONE/Acetaminophen [Percocet 1 ea PO Q6 PRN #10 tab 09/19/17 5/325 mg Tab] Albuterol HFA [Ventolin HFA 90 2 puff IH [id number] PRN #1 inhaler 09/26/17 mcg/actuation (8 g)] Albuterol Sulfate [Proair Hfa] 2 puff IH Q4H PRN #1 unit 10/08/17 predniSONE [predniSONE Tab] 40 mg PO DAILY #10 tab 10/08/17 Albuterol HFA [Ventolin HFA 90 2 puff IH [id number] PRN #1 bottle 10/19/17 mcg/actuation (8 g)] Prednisone 50 mg PO DAILY #4 tab 10/19/17 Albuterol 0.083% [Albuterol 0.083% 3 ml IH Q6H PRN #30 neb 01/05/18 Inhal Maya (2.5 mg/3 ml) UD] Nebulizer [Compact Compressor 1 dev XX PRN PRN #1 dev 01/05/18 Nebulizer] Prednisone 50 mg PO DAILY #4 tab 01/05/18 Meloxicam [Mobic] 1 - 2 tab PO DAILY PRN #12 tab 12/19/18 - Allergies Allergies/Adverse Reactions: Allergies Allergy/AdvReac Type Severity Reaction Status Date / Time No Known Allergies Allergy Verified 12/19/18 15:30 Review of Systems ROS Statement: Except As Marked, All Systems Reviewed And Found Negative Constitutional: Negative for: Fever, Chills Cardiovascular: Negative for: Chest Pain Respiratory: Negative for: Shortness of Breath Musculoskeletal: Positive for: Shoulder Pain (right), Arm Pain (right) Neurological: Negative for: Weakness Physical Exam - Reviewed Nursing Documentation Reviewed: Yes Vital Signs Reviewed: Yes - Physical Exam Appears: Positive for: No Acute Distress Head Exam: Positive for: ATRAUMATIC, NORMAL INSPECTION, NORMOCEPHALIC Skin: Positive for: Normal Color, Warm, DRY Eye Exam: Positive for: EOMI, Normal appearance, PERRL Neck: Positive for: Normal, Painless ROM, Supple Cardiovascular/Chest: Positive for: Regular Rate, Rhythm. Negative for: Murmur Respiratory: Positive for: Normal Breath Sounds. Negative for: Respiratory Di stress Extremity: Positive for: Normal ROM (left shoulder: normal: ROM actively; right shoulder: limited ROM secondary to pain), Capillary Refill (less than 2 seconds), Other (equal flight operations specialist strength bilaterally). Negative for: Pedal Edema, Deformity, Swelling Neurological/Psych: Positive for: Alert, Oriented (x3) - ECG O2 Sat by Pulse Oximetry: 99 (RA) Pulse Ox Interpretation: Normal - Radiology X-Ray: Interpreted by Me (Shoulder x-ray) X-Ray Interpretation: No Acute Disease Medical Decision Making Medical Decision Making: Time: 1541 Impression: Right Shoulder Pain Plan: Lidoderm 5% ea TD Toradol 30 mg IM Shoulder Right [Rad] Scribe Attestation: Documented by Neptali Arnold, acting as a scribe Lance Graff PA-C. Provider Scribe Attestation: All medical record entries made by the Scribe were at my direction and personally dictated by me. I have reviewed the chart and agree that the record accurately reflects my personal performance of the history, physical exam, medical decision making, and the department course for this patient. I have also personally directed, reviewed, and agree with the discharge instructions and disposition. Disposition - Clinical Impression Clinical Impression: Shoulder pain - Patient ED Disposition Is Patient to be Admitted: No - Disposition Referrals: [facility] [place] [facility]Outside] [facility]Outside] Mack Lovett III, MD [Staff Provider] - Disposition: Routine/Home Disposition Time: 16:15 Condition: STABLE Additional Instructions: FOLLOW UP WITH YOUR ORTHOPEDIST FOR FURTHER EVALUATION RETURN TO ED IMMEDIATELY IF SYMPTOMS WORSEN EDIS URBAN, thank you for letting us take care of you today. Your provider was Mychal Busch MD and you were treated for RT SHOULDER. The emergency medical care you received today was directed at your acute symptoms. If you were prescribed any medication, please fill it and take as directed. It may take several days for your symptoms to resolve. Return to the Emergency Department if your symptoms worsen, do not improve, or if you have any other problems. Please contact your doctor or call one of the physicians/clinics you have been referred to that are listed on the Patient Visit Information form that is included in your discharge packet. Bring any paperwork you were given at discharge with you along with any medications you are taking to your follow up visit. Our treatment cannot replace ongoing medical care by a primary care provider outside of the emergency department. Thank you for allowing the [facility] team to be part of your care today. If you had an X-Ray or CT scan: A Radiologist will review the ED reading if any change in treatment is needed we will contact you. If you had a blood, urine, or wound culture: It will take several days for the results, if any change in treatment is needed we will contact you. If you had an STI test: It will take 48 hours for the results. Please call after 1 week if you have not heard back. Prescriptions: Meloxicam [Mobic] 1 - 2 tab PO DAILY PRN #12 tab PRN Reason: Pain Instructions: Shoulder Pain (DC) Forms: [facility] (Romanian)
[2018-12-19] MEDS ORDERED: Lidocaine 5% Patch TD ONE (15:51)
[2018-12-19 16:30] VITALS: PULSE 84
--- NOTE | 2018-12-19 16:53 | RAD ---
Date of service: 12/19/2018 PROCEDURE: Radiographs of the Right Shoulder HISTORY: Pain COMPARISON: No prior. TECHNIQUE: 3 views obtained. FINDINGS: BONES: Normal. No fracture. JOINTS: Minor degenerative osteoarthritis right acromioclavicular and to a lesser degree glenohumeral joints. SOFT TISSUES: Normal. OTHER FINDINGS: Mild biapical pleural thickening IMPRESSION: No acute fractures. Minor degenerative spondylosis right acromioclavicular and to a lesser degree glenohumeral joints.
== END 2018-12-19 16:28 | disposition home or self-care (01) ==
LOC: H.ER 15:23
DX: M25.511 Pain in right shoulder (principal); Z86.59 Personal history of other mental and behavioral disorders; J45.909 Unspecified asthma, uncomplicated
CPT/HCPCS: 73030; 96372; 99283; J1885